=== PATIENT | female | born 1970 | race Caucasian/White ===

== ENCOUNTER 2017-06-01 08:30 | Day surgery (SDC) | payer OTHER ==
--- NOTE | 2017-05-25 06:09 | HP ---
HISTORY OF PRESENT ILLNESS: Carol Garcia is a 47-year-old female who in 2001 had open Reji-en-Y jason rand bypass in [place]. She weighed 253 pounds at the time and lost down to 143 pounds. Current laure ght is 175 pounds. She has been referred by Dr. Al pernicious anemia. Since her gastric bypa ss, she takes vitamins. I have informed her today that the submental B vitamins after jason rand bypass were not adequate. Absorption of B vitamins is impaired after gastric bypass. The patie nt needs to have more bariatric oriented vitamins and directed her to the [facility] on [facility] to take the appropriate post-bariatric surgery vitamins. The patient needs infusions for her pernicious anemia. We have been asked to place a MediPort for infusional therapy access. We will p hui that next week. We will plan a low profile MediPort as an outpatient. She understands the risk s and benefits and consents. PAST SURGICAL HISTORY: Reji-en-Y gastric bypass, open, in 2001, 253 pounds preoperatively, lost ozzie n to 143 pounds gained weight now currently 175 pounds. Cholecystectomy in 2002, hysterectomy witho ut oophorectomy in 2004, performed for bleeding. MEDICATIONS: Iron 325 mg a day, ibuprofen 200 mg with food or milk as needed every six hours, Aleve 220 mg as needed orally every 12 hours, fish oil, ferrous sulfate, meloxicam, vitamins. PAST MEDICAL HISTORY: Pernicious anemia, blood transfusions. ALLERGIES: CODEINE, PHOSPHATE and SULFATE causes dyspnea. REVIEW OF SYSTEMS: Noncontributory. TOBACCO: None. ALCOHOL: Rarely. PHYSICAL EXAMINATION: VITAL SIGNS: Weight 175 pounds, height 64 inches, 30 BMI, blood pressure 104/64, pulse 93, temperat ure 98.8 degrees. HEAD, EYES, EARS, NOSE AND THROAT: Unremarkable. LUNGS: Clear to auscultation. CARDIAC: Regular rate and rhythm without murmur or gallop. ABDOMEN: Soft, nontender, no masses. Midline incision well healed without hernias. EXTREMITIES: Unremarkable. ASSESSMENT AND PLAN: Bariatric status Reji-en-Y gastric bypass in 2001 with B vitamin deficiency. I have informed her again vitamins are not adequate after gastric bypass. I have directed into her more appropriate vitamin daily intake. She will need to take supplemental iron and has bee n prescribed by Dr. Al. She needs infusional therapy on a routine basis and we will plan plac ement of a MediPort. I have also informed her that after gastric bypass, NSAIDS were not recommende d due to the high risk of ulcerations.
[2017-05-29 14:08] VITALS: BMI 28.8
[2017-06-01] MEDS ORDERED: CEFAZOLIN/Water 2 GM/20 ML SYRINGE ONE (09:35)
[2017-06-01] MEDS ORDERED: Midazolam HCl 2 mg/2 ml Vial ONE ×2 (10:28→11:30)
[2017-06-01] MEDS ORDERED: Lidocaine 2% w/Epinephrine 1:200K 20 ML VIAL ONE (11:24)
[2017-06-01] MEDS ORDERED: Bupivacaine PF 0.5% 30 ML VIAL ONE (11:24)
[2017-06-01] MEDS ORDERED: Fentanyl 100 MCG/2 ML VIAL ONE (11:30)
[2017-06-01] MEDS ORDERED: Lidocaine 1% PF 5 ML VIAL ONE (11:48)
[2017-06-01] MEDS ORDERED: Propofol 200 MG/20 ML VIAL ONE (11:48)
--- NOTE | 2017-06-01 12:21 | OP ---
DATE OF PROCEDURE: 06/01/2017 PREOPERATIVE DIAGNOSES: Pernicious anemia, poor IV access, bariatric surgery status, history of Ro ux-en-Y gastric bypass. POSTOPERATIVE DIAGNOSES: Pernicious anemia, poor IV access, bariatric surgery status, history of R oux-en-Y gastric bypass. PROCEDURE: Right subclavian vein MediPort, low profile Power Port. SURGEON: Dr. Grey Wilson ANESTHESIA: Intravenous sedation and local 0.5% Marcaine, 30 mL, mixed with 1% Xylocaine with epine phrine, 30 mL. PROCEDURE: The patient was taken to the operating room where in the supine position under intraveno us sedation, neck and chest were prepared with ChloraPrep, draped in routine fashion. Local anesthe tic infiltrated into skin and subcutaneous tissue about the operative site. Infraclavicular approac h used to cannulate the right subclavian vein. J-wire threaded, trocar catheter removed. Skin inci sed and enlarged sharply carried down through the skin and subcutaneous tissue. Subcutaneous pocket created with blunt and sharp dissection using cautery for hemostasis. Dilator and pull-away sheath placed over the J-wire in superior vena cava. Dilator and J-wire removed. Catheter placed with pu ll-away sheath; pull-away sheath removed. Fluoroscopically, catheter noted to be in good position a s it was tailored to length, connected to the MediPort placed in subcutaneous pocket and secured wit h 2 interrupted sutures of 3-0 Prolene. Subcutaneous tissues approximated with 3-0 Monocryl, skin w ith subdermal 4-0 Monocryl and DermaGlue applied. Each port of the MediPort accessed with Scott espinoza dle, aspirated blood, and flushed with saline and heparinized saline solution. The patient tolerate d the procedure well. Final fluoroscopic images revealed good MediPort and line placement. The pat ient tolerated the procedure well.
[2017-06-01] MEDS ORDERED: Ondansetron HCl/PF 4 MG/2 ML Vial ONE (12:35)
--- NOTE | 2017-06-01 15:58 | RAD ---
PORTABLE CHEST ONE VIEW: Date: 06-01-17 Time: 12:28 p.m. History: Post op Mediport placement. FINDINGS: Comparison made with 02-23-17. There has been interval placement of a right subclavian Mediport with tip in the direction of the SV C. The heart size is normal. The lungs are clear. No focal areas of consolidation, pneumothoraces or pleural effusions identified. IMPRESSION: No acute process. POS: [facility]
== END 2017-06-01 13:43 | disposition home or self-care (01) ==
LOC: SDC 08:30
PROVIDERS: ATTEND Specialist
PROC: 0JH63WZ Insertion of Totally Implantable Vascular Access Device into Chest Subcutaneous Tissue and Fascia, Percutaneous Approach (ICD-10-PCS; principal; 2017-06-01)
DX: D51.0 Vitamin B12 deficiency anemia due to intrinsic factor deficiency (principal); Z79.899 Other long term (current) drug therapy; Z88.5 Allergy status to narcotic agent; Z88.8 Allergy status to other drugs, medicaments and biological substances; Z98.84 Bariatric surgery status; Z90.49 Acquired absence of other specified parts of digestive tract; Z90.710 Acquired absence of both cervix and uterus; Z90.89 Acquired absence of other organs
CPT/HCPCS: 71010; 96374; C1788; J1642; J2001; J2250; J2405; J2704; J3010; S0020

== ENCOUNTER 2018-10-19 18:23 | Emergency (ER) | payer OTHER, SELFPAY ==
[2018-10-19] MEDS ORDERED: HYDROcodone/Acetaminophen 10/325 mg Tablet ONE (20:59)
--- NOTE | 2018-10-19 21:09 | RAD ---
THREE VIEWS RIGHT HAND 10/19/18 HISTORY: Right hand pain after hitting hand on a sawhorse. FINDINGS: There is no evidence of a fracture, dislocation or other osseous abnormality involving the right hand . IMPRESSION: No acute osseous abnormality. If patient's symptoms persists, followup imaging can be performed. POS: [facility]
== END 2018-10-19 21:19 | disposition home or self-care (01) ==
LOC: ERS 18:23
DX: S60.221A Contusion of right hand, initial encounter (principal); Z71.6 Tobacco abuse counseling; F17.210 Nicotine dependence, cigarettes, uncomplicated; Z79.899 Other long term (current) drug therapy; W23.0XXA Caught, crushed, jammed, or pinched between moving objects, initial encounter
CPT/HCPCS: 29125; 99406

== ENCOUNTER 2020-11-03 19:10 | Observation (INO) | payer SELFPAY ==
[2020-11-03 19:49] LABS: #Basophils 0.1 thou/uL (0.0-0.2); #Eosinphils 0.3 thou/uL (0.0-0.7); #Lymphocytes 2.5 thou/uL (1.20-3.40); #Monocytes 0.7 thou/uL (0.11-0.59); #Neutrophils 9.7 thou/uL (1.40-6.50); %Basophils 0.6 % (0.0-1.0); %Eosinophils 2.2 % (0.0-10.0); %Monocytes 5.2 % (0.0-10.0); Hemoglobin 11.5 g/dL (12.0-16.0); Mean Corpuscular HGB CONC 33.6 g/dL (32.0-36.0); Mean Corpuscular Hemoglobin 29.8 pg (27.0-31.0); Mean Corpuscular Volume 88.7 fL (78.0-98.0); Mean Platelet Volume 7.9 fL (7.4-10.4); Platelet Count 253 thou/uL (130-400); RBC Distribution Width 11.7 % (11.5-14.5); Red Blood Cell (RBC) Count 3.85 mill/uL (4.20-5.40); White Blood Cell (WBC) Count 13.3 thou/uL (4.8-10.8)
[2020-11-03 20:11] LABS: ALT (SGPT) 15 U/L (8-55); AST (SGOT) 16 U/L (5-34); Albumin 3.4 g/dL (3.5-5.0); Alkaline Phosphatase 74 U/L (40-110); Anion Gap 13 mmol/L (10-20); BUN (Urea Nitrogen) 15 mg/dL (7.0-18.7); Bilirubin, Total 0.2 mg/dL (0.2-1.2); Calc. Creatinine Clearance 0 mL/min (70-130); Calcium 8.2 mg/dL (7.8-10.44); Carbon Dioxide 20 mmol/L (22-29); Chloride 111 mmol/L (98-107); Globulin 2.3 g/dL (2.4-3.5); Glucose 87 mg/dL (70-105); Lipase 53 U/L (8-78); Potassium 3.9 mmol/L (3.5-5.1); Protein, Total 5.7 g/dL (6.0-8.3); Sodium 140 mmol/L (136-145)
[2020-11-03] MEDS ORDERED: Senokot S 8.6-50 MG TAB PO PRN (21:34)
[2020-11-03] MEDS: Acetaminophen 325 MG TAB PO PRN (23:14)
[2020-11-03 23:17] VITALS: BMI 34.4
[2020-11-03 23:43] LABS: Troponin I Less than 0.010 ng/mL (< 0.028)
[2020-11-03] MEDS ORDERED: traZODone HCl 50 MG TAB PO SCH (23:45)
[2020-11-04 02:20] LABS: #Basophils 0.1 thou/uL (0.0-0.2); #Eosinphils 0.4 thou/uL (0.0-0.7); #Lymphocytes 3.3 thou/uL (1.20-3.40); #Monocytes 0.6 thou/uL (0.11-0.59); %Basophils 0.8 % (0.0-1.0); %Eosinophils 3.5 % (0.0-10.0); %Lymphocytes 32.1 % (21.0-51.0); %Neutrophils 57.7 % (42.0-75.0); Hemoglobin 11.5 g/dL (12.0-16.0); Mean Corpuscular HGB CONC 33.7 g/dL (32.0-36.0); Mean Corpuscular Hemoglobin 29.9 pg (27.0-31.0); Mean Corpuscular Volume 88.7 fL (78.0-98.0); Mean Platelet Volume 7.7 fL (7.4-10.4); Platelet Count 231 thou/uL (130-400); RBC Distribution Width 11.9 % (11.5-14.5); Red Blood Cell (RBC) Count 3.85 mill/uL (4.20-5.40); White Blood Cell (WBC) Count 10.3 thou/uL (4.8-10.8)
[2020-11-04 02:50] LABS: Troponin I Less than 0.010 ng/mL (< 0.028)
[2020-11-04 03:09] LABS: ALT (SGPT) 17 U/L (8-55); AST (SGOT) 15 U/L (5-34); Albumin 3.1 g/dL (3.5-5.0); Alkaline Phosphatase 66 U/L (40-110); Anion Gap 11 mmol/L (10-20); BUN (Urea Nitrogen) 14 mg/dL (7.0-18.7); Bilirubin, Total 0.2 mg/dL (0.2-1.2); Calc. Creatinine Clearance 148 mL/min (70-130); Calcium 8.3 mg/dL (7.8-10.44); Carbon Dioxide 22 mmol/L (22-29); Cardiac Risk 2.9 (Less than 4.5); Chloride 111 mmol/L (98-107); Cholesterol 162 mg/dl (< 200 Desired); Globulin 2.3 g/dL (2.4-3.5); Glucose 93 mg/dL (70-105); HDL Cholesterol 55 mg/dL (>60 Neg Risk); Iron 28 ug/dL (50-170); Iron Binding Capacity, Total 359 mcg/dL (265-497); LDL Cholesterol, Calculated 87 mg/dL; Magnesium 1.6 mg/dL (1.6-2.6); Potassium 3.6 mmol/L (3.5-5.1); Protein, Total 5.4 g/dL (6.0-8.3); Sodium 140 mmol/L (136-145); Triglycerides 99 mg/dL (Less than 150)
[2020-11-04 03:10] LABS: Iron 27 ug/dL (50-170); Iron Binding Capacity, Total 360 mcg/dL (265-497)
[2020-11-04 03:26] LABS: Thyroid Stimulating Hormone 2.2831 uIU/mL (0.35-4.94)
[2020-11-04 04:22] LABS: SARS-CoV-2 PCR by NAA Not Detected (NotDetected)
[2020-11-04 04:30] LABS: Ferritin 5.81 ng/mL (10-291)
[2020-11-04 06:25] LABS: Bacteria/HPF None Seen HPF (None Seen); Bilirubin Negative (Negative); Blood, Urine Negative (Negative); Clarity Clear (Clear); Glucose, Urine (Dipstick) Normal (Negative); Ketone, Urine Negative (Negative); Leukocyte Negative Leu/uL (Negative); Nitrite Negative (Negative); Protein, Urine (Dipstick) Negative (Neg-Trace); RBC/HPF 0-3 HPF (0-3); Specific Gravity, Urine 1.023 (1.002-1.036); Squamous Epithelial 0-3 HPF (0-3); Urobilinogen Normal mg/dL (Less than 2); WBC/HPF 0-3 HPF (0-3)
[2020-11-04] MEDS: Acetaminophen 325 MG TAB PO PRN (07:11)
[2020-11-04] MEDS ORDERED: Famotidine 20 MG TAB PO SCH (09:00)
[2020-11-04] MEDS ORDERED: Aspirin 325 mg Enteric Coated Tablet PO SCH (09:00)
[2020-11-04] MEDS ORDERED: Iron, Sodium Ferric Gluconate 250 MG in Sodium Chloride 0.9% 100 ML IVPB SCH (13:15)
[2020-11-04] MEDS ORDERED: Cyanocobalamin 1000 MCG/ML VIAL IM SCH (13:15)
[2020-11-04] MEDS ORDERED: ADENOSINE 60 MG/20 ML VIAL ONE (14:53)
[2020-11-04 16:03] VITALS: BP 118/68; TEMP 97.5
[2020-11-04] MEDS ORDERED: Ferrous Sulfate 325 MG TAB PO SCH (17:00)
[2020-11-04] MEDS ORDERED: traZODone HCl 50 MG TAB PO SCH (21:00)
[2020-11-05] MEDS ORDERED: Folic Acid 1 MG TAB PO SCH (09:00)
[2020-11-05] MEDS ORDERED: Aspirin 81 mg Enteric Coated Tablet PO SCH (09:00)
[2020-11-05] MEDS ORDERED: Cyanocobalamin (Vitamin B-12) 1,000 MCG TAB PO SCH (09:00)
== END 2020-11-04 17:09 | disposition home or self-care (01) ==
LOC: ERS 19:10 → 2SW 21:22
PROVIDERS: ADMIT Student in an Organized Health Care Education/Training Program; ATTEND Internal Medicine
DX: R07.89 Other chest pain (principal); D51.0 Vitamin B12 deficiency anemia due to intrinsic factor deficiency; F17.210 Nicotine dependence, cigarettes, uncomplicated; D72.829 Elevated white blood cell count, unspecified; K21.9 Gastro-esophageal reflux disease without esophagitis; E66.9 Obesity, unspecified; Z68.34 Body mass index [BMI] 34.0-34.9, adult; Z79.899 Other long term (current) drug therapy; Z88.5 Allergy status to narcotic agent
CPT/HCPCS: 36415; 71045; 78452; 80053; 80061; 81001; 82728; 83540; 83550; 83690; 83735; 84443; 84484; 85025; 87635; 90471; 90732; 93005; 93017; 96365; 96366; 96372; A9500; G0009; G0378; J0153; J2916; J3420; J3490; U0003; U0005